=== PATIENT | male | born 1980 | race Caucasian/White ===

== ENCOUNTER 2024-12-08 09:09 | Emergency (ER) | payer MEDICARE, SELFPAY ==
--- NOTE | ~2024-12-08 | XR_ITS ---
EXAMINATION: XR shoulder LT min 2V DATE: 12/08/2024 09:53 INDICATION: Left shoulder injury and tenderness TECHNIQUE: AP internally and externally rotated, AP oblique externally rotated and transscapular Y vi ews of the left shoulder were obtained. COMPARISON: None FINDINGS: Normal alignment. No fracture. Glenohumeral joint is normal. Acromioclavicular joint is normal. Soft tissues are unremarkable. Visualized portions of the lungs are clear. IMPRESSION: Negative left shoulder radiographs. Reviewed, dictated and finalized at location A.
[2024-12-08 09:13] VITALS: BP 113/82; PULSE 75; RESP 18; TEMP 36.6; O2SAT 98
[2024-12-08] MEDS: KETOROLAC 30 MG/ML VIAL (*BKC) 15 MG IM (10:42)
[2024-12-08] MEDS: ACETAMINOPHEN 325 MG TABLET 650 MG PO (10:42)
[2024-12-08 11:10] VITALS: BP 114/50; PULSE 68; RESP 18; O2SAT 98
--- NOTE | 2024-12-08 13:39 | ED.FALL ---
HPI - Fall General Chief Complaint: Fall Stated Complaint: fell with shoulder pain Time Seen by Provider: 12/08/24 09:13 History of Present Illness HPI Narrative: Patient states he tripped over pit bull and hurt his left shoulder. Has had injuries to this shoulder in the past. Related Data Allergies Allergy/AdvReac Type Severity Reaction Status Date / Time azithromycin (From Zithromax Allergy Hives Verified 12/08/24 10:39 Z-Alonso) Penicillins Allergy Hives Verified 12/08/24 10:39 Sulfa (Sulfonamide Allergy Hives Verified 12/08/24 10:39 Antibiotics) Review of Systems Review of Systems: All systems reviewed & are unremarkable except as noted in HPI and below Exam Narrative: EXAMINATION OF ORGAN SYSTEMS/BODY AREAS: Constitutional: Vital signs per nursing GENERAL:[No acute distress, non-toxic appearing.] HEAD: Normal with no signs of head trauma. EYES: EOMI, conjunctiva normal ENT: Hearing grossly intact LUNGS: Nonlabored breathing. HEART: [Regular rate and rhythm] ABD: [Soft], [nontender to palpation] EXT: Normal range of motion left shoulder though there is some tenderness to the left shoulder and a tiny bruise SKIN: [Bruise left shoulder] NEURO: [Alert and oriented x 3. No gross focal sensory or strength deficits.] PSYCH: Normal affect Course Vital Signs Vital signs: Vital Signs Temperature 97.8 F 12/08/24 09:13 Pulse Rate 75 12/08/24 09:13 Respiratory Rate 18 12/08/24 09:13 Blood Pressure 113/82 12/08/24 09:13 Pulse Oximetry 98 12/08/24 09:13 Oxygen Delivery Room Air 12/08/24 09:13 Temperature 97.8 F 12/08/24 09:13 Pulse Rate 68 12/08/24 11:10 Respiratory Rate 18 12/08/24 11:10 Blood Pressure 114/50 L 12/08/24 11:10 Pulse Oximetry 98 12/08/24 11:10 Oxygen Delivery Room Air 12/08/24 09:13 MDM - Fall MDM Narrative Medical decision making narrative: Patient presents after mechanical fall with left shoulder injury, he is well-appearing, normal range of motion, no obvious deformities, x-ray obtained on my independent interpretation without any obvious acute fracture or dislocation. Patient reassured, after pain medication of Tylenol and IM Toradol here, feels better, agreeable to outpatient management with return precautions. 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 Discharge Plan Discharge Clinical Impression: Fall, Injury of shoulder, left Patient Disposition: Home Condition: Stable Instructions: Shoulder Sprain (ED) Additional Instructions: You can use ice on your shoulder for the 1st few days and take ibuprofen and Tylenol for pain control. You can always return to the emergency room for any further issues. Patient Language: Bahamian Follow-up/Referrals: UNKNOWN,DOCTOR [Primary Care Provider] -
== END 2024-12-08 11:12 | disposition home or self-care (01) ==
PROVIDERS: Emergency Provider Emergency Medicine
DX: S49.92XA Unspecified injury of left shoulder and upper arm, initial encounter (principal); W01.0XXA Fall on same level from slipping, tripping and stumbling without subsequent striking against object, initial encounter
CPT/HCPCS: 73030; 96372; 99283; A9270; J1885